=== PATIENT | male | born 1960 | race Caucasian/White ===

== ENCOUNTER 2024-05-31 16:21 | Inpatient (IN) | payer BC ==
[2024-05-31 18:26] VITALS: BMI 28.3
[2024-05-31] MEDS ORDERED: NALOXONE (NARCAN) HCL 4 MG/0.1 ML SPRAY NS PRN (18:35)
[2024-05-31] MEDS ORDERED: guaiFENesin 600 MG TABLET.ER (FP) PO PRN (18:35)
[2024-05-31] MEDS ORDERED: BENZOCAINE/MENTHOL (CHLORASEPTIC ) LOZENGE MM PRN (18:35)
[2024-05-31] MEDS ORDERED: POLYETHYLENE GLYCOL (HEALTHYLAX) 3350 17 GM PACKET PO PRN (18:35)
[2024-05-31] MEDS ORDERED: LOPERAMIDE HCL 2 MG CAPSULE PO PRN (18:35)
[2024-05-31] MEDS ORDERED: BENZONATATE 200 MG CAPSULE PO PRN (18:35)
[2024-05-31] MEDS ORDERED: MAG HYDROX/AL HYDROX/SIMETH 30 ML UNIT-DOSE CUP PO PRN (18:35)
[2024-05-31] MEDS ORDERED: MAGNESIUM HYDROX 2400MG/30ML ORAL SUSPENSION 30 ML CUP PO PRN (18:35)
[2024-05-31] MEDS ORDERED: TUBERCULIN PPD 5 TU/0.1ML VIAL ID ONE (22:59)
[2024-05-31] MEDS: THIAMINE 100 MG TABLET PO SCH (23:00)
[2024-05-31] MEDS: SULFAMETHOXAZOLE/TRIMETHOPRIM 800MG/160MG D.S. TABLET PO SCH (23:00)
[2024-05-31] MEDS: TUBERCULIN PPD 5 TU/0.1ML SYRINGE (IN PATIENT USE ONLY) ID ONE (23:01)
[2024-05-31] MEDS: MELATONIN 5 MG TABLETS PO SCH (23:01)
[2024-05-31] MEDS: propRANOLol HCL 10 MG TABLET PO ONE (23:57)
[2024-05-31] MEDS: APIXABAN 5 MG TABLET PO SCH (23:57)
[2024-06-01] MEDS: metFORMIN HCL 500 MG TABLET (FP) PO SCH (07:07)
[2024-06-01] MEDS: TAMSULOSIN HCL 0.4 MG CAP PO SCH (07:32)
[2024-06-01] MEDS: FOLIC ACID 1 MG TABLET (FP) PO SCH (10:13)
[2024-06-01] MEDS: PRENATAL VITAMINS W/ FOLIC ACID TABLET (FP) PO SCH (10:13)
[2024-06-01] MEDS: GABAPENTIN 300 MG CAPSULE PO SCH (10:13)
[2024-06-01 11:26] LABS: HEMATOCRIT 32.4 % (40.1-51.0); HEMOGLOBIN 10.7 g/dL (13.7-17.5); MEAN PLT VOLUME 9.8 fl (9.4-12.4); PLATELET COUNT 358 x10^3/uL (163-337); RDW 12.5 % (12.2-16.4)
[2024-06-01 11:32] LABS: EPI CELLS 18 /uL (0-25.1); HYALINE CASTS 2 /uL (0-3.1); URINE APPEARANCE CLEAR; URINE BACTERIA 19 /uL (0-1359); URINE BILIRUBIN NEGATIVE (NEGATIVE); URINE COLOR YELLOW; URINE GLUCOSE (UA) NEGATIVE (NEGATIVE); URINE KETONE NEGATIVE (NEGATIVE); URINE LEUK ESTERASE 1+ (NEGATIVE); URINE NITRITE NEGATIVE (NEGATIVE); URINE PROTEIN 2+ (NEGATIVE); URINE RBC 9 /uL (0-23.9); URINE UROBILINOGEN 0.2 mg/dL (0.2-1.0); URINE WBC 30 /uL (0-25.8)
[2024-06-01] MEDS: risperiDONE 0.5 MG TABLET PO SCH (12:02)
[2024-06-01] MEDS: SERTRALINE HCL 25 MG TABLET (FP) PO SCH (12:24)
[2024-06-01 13:03] LABS: SYPHILIS W/ RPR CONF NON-REACTIVE (NONREACTIVE)
[2024-06-01 13:32] LABS: HCV DIAGNOSTIC IN-HOUSE W/RFLX NON-REACTIVE (NONREACTIVE)
[2024-06-01 14:27] LABS: CHLORIDE 109 mmol/L (98-107); POTASSIUM 3.9 mmol/L (3.5-5.1); SODIUM 143 mmol/L (136-145)
[2024-06-01 14:29] LABS: CALCIUM 8.9 mg/dL (8.5-10.1)
[2024-06-01 14:31] LABS: ALBUMIN 2.7 g/dl (3.4-5.0); ANION GAP 8 mmol/L (4-13); BLOOD UREA NITROGEN 9.9 mg/dL (7-18); CO2 27 mmol/L (21-32); GLUCOSE,RANDOM 105 mg/dL (74-106)
[2024-06-01 14:33] LABS: CREATININE 0.8 mg/dL (0.55-1.3); SGOT/AST 17 U/L (15-37); SGPT/ALT 20 U/L (13-61)
[2024-06-01 14:34] LABS: BILIRUBIN,TOTAL 0.6 mg/dL (0.2-1); TOT PROT 6.1 g/dl (6.4-8.2)
[2024-06-01 14:35] LABS: ALK PHOS 56 U/L (45-117)
[2024-06-01] MEDS: traZODone HCL 100 MG TABLET (FP) PO SCH (21:32)
[2024-06-01] MEDS ORDERED: traZODone HCL 50 MG TABLET (FP) PO SCH (22:00)
[2024-06-02] MEDS: ACETAMINOPHEN 325 MG TABLET (FP) PO PRN (19:53)
[2024-06-12 17:34] LABS: EPI CELLS 2 /uL (0-25.1); HYALINE CASTS 0 /uL (0-3.1); PH,URINE 7.5 (5.0-8.0); URINE APPEARANCE CLEAR; URINE BACTERIA 4 /uL (0-1359); URINE BILIRUBIN NEGATIVE (NEGATIVE); URINE COLOR YELLOW; URINE GLUCOSE (UA) NEGATIVE (NEGATIVE); URINE KETONE NEGATIVE (NEGATIVE); URINE LEUK ESTERASE TRACE (NEGATIVE); URINE NITRITE NEGATIVE (NEGATIVE); URINE PROTEIN NEGATIVE (NEGATIVE); URINE RBC 3 /uL (0-23.9); URINE UROBILINOGEN 0.2 mg/dL (0.2-1.0); URINE WBC 6 /uL (0-25.8)
[2024-06-13 17:50] LABS: EPI CELLS 2 /uL (0-25.1); HYALINE CASTS 0 /uL (0-3.1); URINE APPEARANCE CLEAR; URINE BACTERIA 4 /uL (0-1359); URINE BILIRUBIN NEGATIVE (NEGATIVE); URINE COLOR YELLOW; URINE GLUCOSE (UA) NEGATIVE (NEGATIVE); URINE KETONE NEGATIVE (NEGATIVE); URINE LEUK ESTERASE TRACE (NEGATIVE); URINE NITRITE NEGATIVE (NEGATIVE); URINE PROTEIN NEGATIVE (NEGATIVE); URINE RBC 8 /uL (0-23.9); URINE UROBILINOGEN 0.2 mg/dL (0.2-1.0)
[2024-06-19 06:44] VITALS: RESP 16; TEMP 96.5
[2024-06-19 09:16] VITALS: BP 115/72; PULSE 85
== END 2024-06-19 11:00 | disposition home or self-care (01) | DRG 772 ==
LOC: YASAS 16:21 → Y3E 21:38 → Y5N 22:03
PROVIDERS: ADMIT Psychiatry & Neurology Pain Medicine; ATTEND Psychiatry & Neurology Pain Medicine
PROC: HZ42ZZZ Group Counseling for Substance Abuse Treatment, Cognitive-Behavioral (ICD-10-PCS; principal; 2024-05-31)
DX: F10.20 Alcohol dependence, uncomplicated (principal); I10 Essential (primary) hypertension; E11.42 Type 2 diabetes mellitus with diabetic polyneuropathy; Z79.84 Long term (current) use of oral hypoglycemic drugs; N40.1 Benign prostatic hyperplasia with lower urinary tract symptoms; R33.9 Retention of urine, unspecified; Z96.0 Presence of urogenital implants; Z86.711 Personal history of pulmonary embolism; I82.402 Acute embolism and thrombosis of unspecified deep veins of left lower extremity; Z87.891 Personal history of nicotine dependence; Z59.00 Homelessness unspecified
CPT/HCPCS: 36415; 80053; 80305; 80307; 81003; 82962; 85027; 86780; 86803; 87811; 93005; 93010